=== PATIENT | female | born 1965 | race Caucasian/White ===

== ENCOUNTER 2019-11-08 10:38 | Outpatient (REF) | payer MEDICAID, SELFPAY ==
[2019-11-08 13:59] LABS: HCT 43.1 % (36.0-46.0); Mean Corp. HGB Concentration 32.5 g/dL (32.0-36.0); Mean Corpuscular Hemoglobin 29.3 pg (27.0-33.0); Mean Corpuscular Volume 90.2 fL (80-95); Mean Platelet Volume 10.7 fL (8.0-11.0); Platelet Count 503 x1000/uL (130-400); RBC 4.78 m/cumm (4.00-5.20); White Blood Cell Count 6.18 k/cumm (4.4-10.8)
[2019-11-08 14:21] LABS: ALT 21 U/L (14-59); AST 13 U/L (15-37); Alkaline Phosphatase 52 U/L (46-116); BUN 16 mg/dL (7-18); Bilirubin, Total 0.6 mg/dL (0.2-1.0); CREATININE 0.77 mg/dL (0.55-1.02); Calcium 9.7 mg/dL (8.5-10.1); Calculated LDL 112 mg/dL (<100); Chloride 103 mmol/L (98-107); Cholesterol 206 mg/dL (<200); Glucose 101 mg/dL (74-106); HDL Cholesterol 72 mg/dL (40-60); Magnesium 2.2 mg/dL (1.8-2.4); Potassium 4.4 mmol/L (3.5-5.1); Sodium 141 mmol/L (136-145); TSH (W/Ref FT4) 1.06 uIU/mL (0.36-3.74); Total Protein 7.6 g/dL (6.4-8.2); Triglyceride 110 mg/dL (<150)
== END 2019-11-08 10:58 ==
LOC: NCHCN 10:38
PROVIDERS: PCP Nurse Practitioner Family; Visit Provider Nurse Practitioner Family
DX: E83.42 Hypomagnesemia (principal); G47.9 Sleep disorder, unspecified
CPT/HCPCS: 80053; 80061; 85027; 83735; 84443

== ENCOUNTER 2019-12-02 17:25 | Emergency (ER) | payer OTHER, MEDICAID, SELFPAY ==
[2019-12-02 17:30] VITALS: BP 136/81; PULSE 77; RESP 14; TEMP 36.7; O2SAT 96
--- NOTE | 2019-12-02 17:55 | ED.GENADUL_ITS ---
Discharge Plan Disposition Patient Disposition: HOME Condition: Fair Discharge Details Chief Complaint: PsychEval Clinical Impression: Depression, Suicidal thoughts Primary Care Provider: Bryce Hankins ED Provider: Marcela Drake Home Meds and New Rx's Prescriptions: Continued trazodone 100 mg Tablet 100 mg PO QHS RF: 0 Discharge Instructions Instructions: Depression (ED), Suicide Prevention for Adults (ED) Additional Instructions: Encourage water intake. Encourage gentle exercise as discussed. Please keep your open communication with your going. Please contact your primary care tomorrow to discuss beginning to taper from your trazodone. Please keep your upcoming appointment with your psychologist. Please keep your upcoming appointment with your counselor. Mental health will be in contact with you tomorrow to check in. Please remember your safety contract. If you develop thoughts of self-harm, suicidal plan, or the new/worsening symptoms please seek care immediately once again. Referrals: Bryce Hankins, DEHYDRATOR TENDER [Primary Care Provider] - Discharge Data Discharge Date/Time-TO BE ENTERED AT DEPARTURE: 12/02/19 22:40 Medical Decision Making Patient is a pleasant 54-year-old female, accompanied by her , with chief complaint of worsening depression. Patient her reports that she has had depression for several months. However, recently, this is become much worse. Particular over the past month, symptoms have worsened. Patient did start trazodone 1 month ago she does not initially feel that this is linked to the time of the onset of medications with gradual progression. Patient reports that she is intermittently fiber harming self. She once tried to overdose on meloxicam but her maybe spit out the pills. She reports this is presently 1 to 2 weeks ago. She reports that she does not have an active plan at this time but does often think that my family would better off without me. In particular, her relationship with her has her very concerned. She reports that they have not been sexually intimate in quite some time, she feels that this is her fault that she is currently going through menopause. Patient is status post total hysterectomy but reports feeling hot flashes, mood swings, irritability, fatigue. Feels that she may be going through menopause currently. She also reports a strained relationship with her children. Is concerned that she has not been able to hold a job. She also reports physical manifestations including increased fatigue, slowing of her movements, dropping things frequently. States that she has been very forgetful. She and her report that this been manifesting in her burning food and having difficulty with daily tasks which is atypical for her. Patient reports that trazodone is making it more difficult for her to sleep as this increases her restless leg. Recently had a dose increase which further worsened her restless leg symptoms. Physical exam reveals a calm appearing woman, she has good eye contact. Neurologic exam was preformed as the patient was endorsing some weakness, exam is without signficant abnormality. She does tear up and seem sad when discussing her relationship with her family. She has some forward thinking but this is not positive. No suicidal plan, endorses passive intermittent suicidal thoughts, typically during fight with her . Plan to evalute with baseline labs. Will consult with mental health. Patient in paper clothes, will have CPSO. Labs reviewed, no sigfnicant abnormality is noted. Patient was evaluated by mental health. They feel that she is safe for discharge. She does have a very supportive relationship with her . She would prefer outpatient management. Initially, patient reported to me that she has not seen a counselor in years, she is reporting to them that she began counseling 1 month ago. Has an appointment with them again on Monday. Is also seeing a psychologist to discuss medication adjustment in 2 days. Mental health does not feelthat the patient is an risk to herself or others at this time. She has an excellent support system in her . They will contact patient tomorrow to check in, she has appropriate upcoming appointment. Advised she contact her primary care to discuss potentially weaning off of the trazadone as her symptoms have worsened since begining this medication and the increase in her RLS is making it difficult for her to sleep. She was given return precautions. Seems very happy about the discussion she had with mental health. All of her questions and concerns were addressed, she is in agreement with this plan. HPI General Mode of arrival: ambulatory . Date/Time Provider Initiated Documentation: 12/02/19 17:55 . Limitations to Documentation: no limitations . Information obtained by: patient, family () and RN notes reviewed . History of Present Illness 54 year old F presents to the emergency department with the chief complaint of worsening depression, suicidal thoughts, described as moderate and similar to prior episodes (intermittent for several years), Patient started experiencing this year(s) and it has been intermittent (worse over past month). No relieving factors improve symptom(s), Other factors that worsen symptoms (social stressers) . Patient notes no other symptoms.. Patient did receive the following treatments prior to arrival, none Related Data Home Medications Medication Instructions Recorded Confirmed trazodone 100 mg PO QHS 12/02/19 12/02/19 Allergies Allergy/AdvReac Type Severity Reaction Status Date / Time bee venom protein (honey bee) Allergy Severe anaphylaxis Unverified 12/02/19 17:35 General Stated Complaint: PsychEval NIKOLAS: 2 Review of Systems Constitutional Constitutional: Reports as per HPI, Denies chills, Denies fatigue, Denies fever(s), Denies headache(s) and Denies weakness Eyes Eyes: Denies change in vision ENT Ears, Nose, Mouth, and Throat: Denies headache(s) Cardiovascular Cardiovascular: Reports as per HPI, Denies chest pain, Denies lightheadedness, Denies dyspnea and Denies dyspnea on exertion Respiratory Respiratory: Reports as per HPI, Denies cough, Denies dyspnea and Denies dyspnea on exertion Gastrointestinal Gastrointestinal: Reports as per HPI, Denies abdominal pain, Denies change in bowel habits, Denies nausea and Denies vomiting Musculoskeletal Musculoskeletal: Denies abnormal gait Integumentary/Breasts Skin/Breast: Reports as per HPI and Denies rash Neurologic Neurologic: Denies abnormal movements, Denies abnormal speech, Denies abnormal gait, Denies headache(s), Denies paresthesias and Denies weakness Endocrine Endocrine: Denies fatigue PFSH Social History Smoking/Tobacco Use Status: Former Tobacco Use Alcohol Intake: current Substance use type: does not use Details: drinks only when buys alcohol drank over the weekend Do you feel safe at home: No (not safe from herself) Do you feel safe in your relationship?: Yes Additional Social history: supportive - stopped her last attempt Exam Const General: cooperative, healthy appearing, comfortable, no acute distress, well developed and well groomed Nutritional Appearance: average body habitus and well nourished Orientation: alert and awake Eyes General: appearance normal, both eyes and all related structures Visual Flynn: normal visual flynn by confrontation Alignment and Position: alignment normal Periorbital: periorbital findings normal Eyelids: eyelids normal Conjunctivae: conjunctivae normal Sclera: sclerae normal Cornea: corneas normal Pupils: PERRL and normal by confrontation EOM: EOM intact bilaterally Resp Effort & Inspection: normal respiratory effort, able to speak in complete sentences and no respiratory distress Auscultation: clear to auscultation bilaterally, no rales, no rhonchi and no wheezes Cardio Rate: regular rate Rhythm: regular rhythm Heart Sounds: S1 normal and S2 normal Skin General skin exam: no rashes or lesions noted Trauma: no lacerations or abrasions Neuro General: alert, awake and oriented x3 Cranial Nerves: CN's II-XI intact bilaterally Cognition: normal cognition Speech: speech normal Gait: normal gait Motor: muscle tone normal throughout, strength 5/5 throughout, no pronator drift, no movement abnormalities noted and no fasciculations Sensory Exam: no sensory deficits noted DTR's: Rt Triceps: 2+, Lt Triceps: 2+, Rt Biceps: 2+, Lt Biceps: 2+, Rt Brachioradialis: 2+, Lt Brachioradialis: 2+, Rt Patellar: 2+, Lt Patellar: 2+, Rt Ankle: 2+ and Lt Ankle: 2+ Coordination: [id number] test normal, [id number] test normal, Romberg test normal and tandem gait normal Course Vital Signs Vital signs: Vital Signs Temperature 36.7 C 12/02/19 17:30 Pulse 77 12/02/19 17:30 Respiratory Rate 14 12/02/19 17:30 Blood Pressure 136/81 12/02/19 17:30 Pulse Oximetry 96 12/02/19 17:30 Temperature 36.7 C 12/02/19 17:30 Temperature Source Skin 12/02/19 17:30 Pulse 77 12/02/19 17:30 Respiratory Rate 14 12/02/19 17:30 Respiratory Effort 12/02/19 17:36 Blood Pressure 136/81 12/02/19 17:30 Blood Pressure Position Sitting 12/02/19 17:30 Pulse Oximetry 96 12/02/19 17:30 Oxygen Delivery Method Room Air 12/02/19 17:30 Oxygen Flow Rate 0 12/02/19 17:30 Pain Level 5 12/02/19 17:30 Comment takes muscle relaxers 12/02/19 17:30
[2019-12-02 19:05] LABS: Absolute Basophil Count 0.03 k/cumm (0.0-0.2); Absolute Eosinophil Count 0.07 k/cumm (0.0-0.7); Absolute Monocyte Count 0.28 k/cumm (0.11-0.7); Absolute Neutrophil Count 2.65 k/cumm (1.2-6.7); Basophils % 0.5; Eosinophils % 1.2; HCT 39.8 % (36.0-46.0); HGB 13.5 g/dL (12.0-15.5); Lymphocytes % 49.8; Mean Corp. HGB Concentration 33.9 g/dL (32.0-36.0); Mean Corpuscular Hemoglobin 30.5 pg (27.0-33.0); Mean Platelet Volume 9.6 fL (8.0-11.0); Monocytes % 4.6; Neutrophils % 43.9; Platelet Count 428 x1000/uL (130-400); RBC 4.42 m/cumm (4.00-5.20); RBC Distribution Width 12.8 % (11.7-14.6); White Blood Cell Count 6.03 k/cumm (4.4-10.8)
[2019-12-02 19:13] LABS: Bilirubin Negative (Negative); Blood Negative (Negative); Clarity Clear (Clear); Glucose Negative (Negative); Ketones Negative (Negative); Leukocyte Esterase Trace (Negative); Nitrite Negative (Negative); Specific Gravity 1.015 (1.005-1.025); Urobilinogen 0.2 EU/dL (Up TO 0.2)
[2019-12-02 19:22] LABS: Bacteria Negative HPF (Negative); C & S Indicated? Yes; Casts Negative LPF (Negative); Crystals Negative HPF (Negative); Epithelial Cells Rare HPF (Negative); Mucus Negative (Negative); Other Cells Rare Renal (Negative); RBC Negative HPF (0-2); WBC 0-2 HPF (0-5)
[2019-12-02 19:27] LABS: ALT 19 U/L (14-59); AST 15 U/L (15-37); Albumin 3.8 g/dL (3.4-5.0); Alkaline Phosphatase 50 U/L (46-116); Anion Gap 8.6 mmol/L (3-11); BUN 15 mg/dL (7-18); Bilirubin, Total 0.3 mg/dL (0.2-1.0); CO2 30.4 mmol/L (21.0-32.0); CREATININE 0.81 mg/dL (0.55-1.02); Calcium 9.1 mg/dL (8.5-10.1); Chloride 104 mmol/L (98-107); Glucose 131 mg/dL (74-106); Potassium 3.5 mmol/L (3.5-5.1); Sodium 143 mmol/L (136-145); TSH 2.35 uIU/mL (0.36-3.74); Total Protein 7.5 g/dL (6.4-8.2)
[2019-12-02 19:27] LABS: *AMPHETAMINES SCREEN URINE Negative (Negative); *BARBITURATES SCREEN URINE Negative (Negative); *BENZODIAZEPINES SCREEN URINE Negative (Negative); Cannabinoids THC Negative (Negative); Cocaine Screen,Urine Negative (Negative); METHADONE URINE SCREEN Negative (Negative); OPIATES URINE SCREEN Negative (Negative); Tricyclic Antidepressants Negative (Negative)
[2019-12-02 19:37] LABS: Salicylate < 2.8 mg/dL (2.8-20.0)
[2019-12-02 19:39] LABS: ETHANOL BLOOD < 3.0 mg/dL (<3)
[2019-12-02 19:41] LABS: Acetaminophen < 2 ug/mL (10-30)
[2019-12-02 22:40] VITALS: BP 136/81; PULSE 77; RESP 14; TEMP 36.7; O2SAT 96
== END 2019-12-02 22:40 | disposition home or self-care (01) ==
PROVIDERS: Emergency Provider Physician Assistant; PCP Nurse Practitioner Family
DX: F32.89 Other specified depressive episodes (principal); R45.851 Suicidal ideations; Z91.5 Personal history of self-harm
CPT/HCPCS: 36415; 80053; 80307; 99285; 80320; 80329; 81003; 81015; 84443; 85025; 87086

== ENCOUNTER 2020-01-30 00:20 | Outpatient (CLI) | payer OTHER, MEDICAID, SELFPAY ==
--- NOTE | 2020-01-30 | DI.MRI_ITS ---
EXAM: MR BRAIN WO CLINICAL HISTORY: HEADACHES, R51,MEMORY IMPAIRMENT,R41.3,NEW AUDITORY HALLUCINATIONS,R44.3. TECHNIQUE: Routine multiplanar multisequence MRI of the brain was performed. CONTRAST MATERIAL: None COMPARISON: No exams were available for comparison FINDINGS: VENTRICLES AND EXTRA AXIAL SPACES: Normal in size and morphology for the patient's age. HEMORRHAGE: None. CEREBRAL PARENCHYMA: Mild atrophy disproportionate to the patient's age. No high signal lesions are seen in the white matter. No focus of restricted diffusion to suggest acute infarct. No space-occupy ing lesion identified. MIDLINE SHIFT: None. BRAINSTEM/CEREBELLUM: Normal. VISUALIZED PARANASAL SINUSES/MASTOIDS: Clear. The vascular flow voids appear intact. The orbits and pituitary are unremarkable. IMPRESSION: Mild atrophy, otherwise unremarkable MRI of the brain. DATA REPOSITORY:
== END 2020-01-30 00:40 ==
PROVIDERS: PCP Nurse Practitioner Family; Visit Provider Family Medicine
DX: R51 Headache (principal); R41.3 Other amnesia; R44.0 Auditory hallucinations; G31.89 Other specified degenerative diseases of nervous system
CPT/HCPCS: 70551

== ENCOUNTER 2020-02-28 07:57 | Outpatient (REF) | payer OTHER, MEDICAID, SELFPAY ==
[2020-02-28 19:14] LABS: Vitamin B12 1059 pg/mL (193-986)
[2020-03-02 07:30] LABS: Vitamin D 25 Total 32.5 ng/ml (30-100)
[2020-03-02 11:58] LABS: Syphilis Serology (RPR) Negative (Negative)
== END 2020-02-28 08:17 ==
LOC: NCHCN 07:57
PROVIDERS: PCP Nurse Practitioner Family; Visit Provider Family Medicine
DX: R51 Headache (principal); R41.3 Other amnesia; R44.3 Hallucinations, unspecified; Z51.81 Encounter for therapeutic drug level monitoring
CPT/HCPCS: 82306; 82607; 86592

== ENCOUNTER 2021-12-01 17:14 | Outpatient (REF) | payer OTHER, MEDICAID, SELFPAY ==
[2021-12-01 16:59] LABS: ALT 28 U/L (14-59); AST 18 U/L (15-37); Albumin 4.2 g/dL (3.4-5.0); Alkaline Phosphatase 59 U/L (46-116); Anion Gap 9.4 mmol/L (3-11); BUN 15 mg/dL (7-18); Bilirubin, Total 0.3 mg/dL (0.2-1.0); CO2 27.6 mmol/L (21.0-32.0); CREATININE 0.8 mg/dL (0.55-1.02); Calcium 9.6 mg/dL (8.5-10.1); Calculated LDL 228 mg/dL (<100); Chloride 102 mmol/L (98-107); Cholesterol 304 mg/dL (<200); Glucose 90 mg/dL (74-106); HDL Cholesterol 61 mg/dL (40-60); Magnesium 2.3 mg/dL (1.8-2.4); Potassium 4.9 mmol/L (3.5-5.1); Sodium 139 mmol/L (136-145); Total Protein 7.8 g/dL (6.4-8.2); Triglyceride 76 mg/dL (<150)
== END 2021-12-01 17:15 | disposition home or self-care (01) ==
LOC: NCHCN 17:14
PROVIDERS: PCP Nurse Practitioner Family; Visit Provider Nurse Practitioner Family
DX: Z00.00 Encounter for general adult medical examination without abnormal findings (principal)
CPT/HCPCS: 80053; 80061; 83735

== ENCOUNTER 2021-12-02 16:19 | Outpatient (REF) | payer OTHER, MEDICAID, SELFPAY ==
[2021-12-02 14:07] LABS: HCT 42.6 % (36.0-46.0); HGB 14.1 g/dL (11.2-15.7); MCH 29.6 pg (27.0-33.0); MCHC 33.1 % (32.0-36.0); MCV 89.5 fL (80-95); MPV 10.9 fL (8.0-11.0); Platelet Count 419 10^3/uL (130-400); RBC 4.76 10^6/uL (3.93-5.22); RDW 12.5 % (11.7-14.6); RDW-SD 41.2 fL; WBC 6.01 10^3/uL (4.4-10.8)
[2021-12-02 14:17] LABS: Iron 92 ug/dL (50-170); Total Iron Binding Capacity 300 ug/dL (250-450); Transferrin Sat 31 % (15-50)
[2021-12-02 22:50] LABS: Ferritin 130 ng/mL (10-291)
== END 2021-12-02 16:20 | disposition home or self-care (01) ==
LOC: NCHCN 16:19
PROVIDERS: PCP Nurse Practitioner Family; Visit Provider Nurse Practitioner Family
DX: G47.9 Sleep disorder, unspecified (principal)
CPT/HCPCS: 85027; 82728; 83540; 83550

== ENCOUNTER 2022-09-02 10:13 | Emergency (ER) | payer OTHER, MEDICAID, SELFPAY ==
[2022-09-02 10:20] VITALS: BP 154/82; PULSE 127; RESP 16; TEMP 38; O2SAT 95
--- NOTE | 2022-09-02 10:45 | RT.EKG_ITS ---
APPROVED REPORT Exam: Resting ECG Reason for Exam: OD Patient Location: E HR:96 bpm ECG Measurements Heart Rate [address] 172 P 56 QRSd 94 QRS -59 QT 358 T 42 QTc 453 Conclusion Sinus rhythm...normal P axis, V-rate 60- 99 Probable left atrial enlargement...P >50mS, <-0.10mV V1 Left anterior fascicular block...axis(240,-40), init forces inf
--- NOTE | 2022-09-02 10:54 | ED.GENADUL_ITS ---
Discharge Plan Disposition Patient Disposition: Home Condition: Improving Discharge Details Clinical Impression: Depression, Overdose Primary Care Provider: Vikki Bowman ED Provider: Rangel Bang Home Meds and New Rx's Prescriptions: Continued sertraline 100 mg tablet 2 tab PO DAILY Label Comments: TAKE 2 TABLETS BY MOUTH ONCE DAILY IN THE MORNING Discharge Instructions Instructions: Depression (ED) Additional Instructions: Please follow the instructions given to you by the [facility] human services team, phone #[phone]. They will be checking in with you over the weekend and to get you referred to additional outpatient resources as well as we will look into a care bed if you would like to pursue this. Please watch for ne w or worsening symptoms and return to the ER for any concerns. Otherwise please contact your primary care provider on Monday to discuss your ER visit and need for outpatient reevaluation. Discharge Data Discharge Date/Time-TO BE ENTERED AT DEPARTURE: 09/02/22 15:33 Medical Decision Making 57-year-old female who reports that she took 5 or 6 100 mg sertraline yesterday around 3 PM presented to the ER for ongoing depression and vague thoughts of SI, no current plan. Given she presents with tachycardia, very well may be secondary to crying, anxiety, etc. but in the setting of a temperature of 38.0, will obtain laboratory values for medical screening evaluation. Of note, repeat temperature was normal, no fever. We will initiate a CPSO, interim care plan, and once medically cleared will initiate a mental health evaluation. Poison control contacted, recommends monitoring heart rate and repeat salicylate level. Otherwise symptomatic care Repeat heart rate of 112. Patient continues to be tearful, requesting anxiolytic. 2 mg p.o. Ativan provided. Laboratory values reveal minimal nonspecific leukocytosis of 10.93. Examination does not reveal any obvious signs of infection. Laboratory values otherwise grossly unremarkable for obvious emergent process. Initial salicylate level of 9.1, subsequent level obtained at the request of poison control, trending downward at 5.6. Patient medically cleared. We will now request a mental health evaluation. Mental health evaluation completed, able to safety plan the patient home, will check in with her over the weekend. They are sending referral to case management and outpatient therapy. Also will consider a care bed. Patient is agreeable to this plan and reports that she feels safe going home with her . Heart rate now 102. Strict discharge and return precautions were provided. Patient understands, is agreeable to this plan, and has no additional questions or concerns upon discharge. This documentation was generated using [employer] system, please disregard any oddities of phrase or misspellings. Medical Records Medical records reviewed: Yes I reviewed the patient's medical records. Lab Data Lab results reviewed: Yes I reviewed the patient's lab results. Labs: Laboratory Tests Range/Units 09/02/22 09/02/22 09/02/22 10:26 10:26 11:44 WBC (4.4-10.8) 10^3/uL RBC (3.93-5.22) 10^6/uL Hgb (11.2-15.7) g/dL Hct (36.0-46.0) % MCV (80-95) fL MCH (27.0-33.0) pg MCHC (32.0-36.0) % RDW (11.7-14.6) % Plt Count (130-400) 10^3/uL MPV (8.0-11.0) fL Immature Gran % Neutrophils % Lymphocytes % Monocytes % Eosinophils % Basophils % Nucleated RBC % (0.0-0.3) % Absolute Neutrophils (1.2-6.7) 10^3/uL Absolute Lymphocytes (1.2-3.4) 10^3/uL Absolute Monocytes (0.1-0.8) 10^3/uL Absolute Eosinophils (0.0-0.7) 10^3/uL Absolute Basophils (0.0-0.2) 10^3/uL Sodium (136-145) mmol/L 134 L Potassium (3.5-5.1) mmol/L 3.8 Chloride (98-107) mmol/L 98 Carbon Dioxide (21.0-32.0) mmol/L 28.1 Anion Gap (3-11) mmol/L 7.9 BUN (7-18) mg/dL 10 Creatinine (0.55-1.02) mg/dL 0.7 Est GFR (CKD-EPI 2020) (mL/min/1.73m2) 100.81 Glucose (74-106) mg/dL 135 H Calcium (8.5-10.1) mg/dL 9.9 Total Bilirubin (0.2-1.0) mg/dL 0.4 AST (15-37) U/L 17 ALT (14-59) U/L 19 Alkaline Phosphatase (46-116) U/L 60 Total Protein (6.4-8.2) g/dL 8.5 H Albumin (3.4-5.0) g/dL 4.1 TSH (0.36-3.74) uIU/mL 1.35 Urine Color (Yellow) Straw Urine Clarity (Clear) Clear Urine pH (5-8) 6.5 Ur Specific Circle (1.005-1.025) 1.010 Urine Protein (Negative) mg/dL Negative Urine Ketones (Negative) mg/dL Negative Urine Blood (Negative) Trace-intact H Urine Nitrite (Negative) Negative Urine Bilirubin (Negative) Negative Urine Urobilinogen (Up TO 0.2) EU/dL 0.2 Ur Leukocyte Esterase (Negative) Negative Urine RBC (0-2) HPF 0-2 Urine WBC (0-5) HPF Negative Ur Epithelial Cells (Negative) HPF Rare Urine Crystals (Negative) HPF Negative Urine Bacteria (Negative) HPF Negative Urine Casts (Negative) LPF Negative Urine Mucus (Negative) Negative Ur Culture Indicated? No Urine Glucose (Negative) mg/dL Negative Salicylates (<2.8) mg/dL Urine Opiates Screen (Negative) Negative Urine Methadone Screen (Negative) Negative Acetaminophen (10-30) ug/mL Ur Barbiturates Screen (Negative) Negative Ur Tricyclics Screen (Negative) Negative Ur Amphetamines Screen (Negative) Negative U Benzodiazepines Scrn (Negative) Negative Urine Cocaine Screen (Negative) Negative Ur THC Screen (Negative) Negative Ethyl Alcohol (<10) mg/dL < 3.0 Range/Units 09/02/22 09/02/22 09/02/22 11:44 11:44 14:37 WBC (4.4-10.8) 10^3/uL 10.93 H RBC (3.93-5.22) 10^6/uL 4.71 Hgb (11.2-15.7) g/dL 13.9 Hct (36.0-46.0) % 40.9 MCV (80-95) fL 87 MCH (27.0-33.0) pg 29.5 MCHC (32.0-36.0) % 34.0 RDW (11.7-14.6) % 13.3 Plt Count (130-400) 10^3/uL 456 H MPV (8.0-11.0) fL 9.8 Immature Gran % 0.4 Neutrophils % 79.5 Lymphocytes % 15.5 Monocytes % 4.2 Eosinophils % 0.0 Basophils % 0.4 Nucleated RBC % (0.0-0.3) % 0.0 Absolute Neutrophils (1.2-6.7) 10^3/uL 8.69 H Absolute Lymphocytes (1.2-3.4) 10^3/uL 1.69 Absolute Monocytes (0.1-0.8) 10^3/uL 0.46 Absolute Eosinophils (0.0-0.7) 10^3/uL 0.00 Absolute Basophils (0.0-0.2) 10^3/uL 0.04 Sodium (136-145) mmol/L Potassium (3.5-5.1) mmol/L Chloride (98-107) mmol/L Carbon Dioxide (21.0-32.0) mmol/L Anion Gap (3-11) mmol/L BUN (7-18) mg/dL Creatinine (0.55-1.02) mg/dL Est GFR (CKD-EPI 2020) (mL/min/1.73m2) Glucose (74-106) mg/dL Calcium (8.5-10.1) mg/dL Total Bilirubin (0.2-1.0) mg/dL AST (15-37) U/L ALT (14-59) U/L Alkaline Phosphatase (46-116) U/L Total Protein (6.4-8.2) g/dL Albumin (3.4-5.0) g/dL TSH (0.36-3.74) uIU/mL Urine Color (Yellow) Urine Clarity (Clear) Urine pH (5-8) Ur Specific Circle (1.005-1.025) Urine Protein (Negative) mg/dL Urine Ketones (Negative) mg/dL Urine Blood (Negative) Urine Nitrite (Negative) Urine Bilirubin (Negative) Urine Urobilinogen (Up TO 0.2) EU/dL Ur Leukocyte Esterase (Negative) Urine RBC (0-2) HPF Urine WBC (0-5) HPF Ur Epithelial Cells (Negative) HPF Urine Crystals (Negative) HPF Urine Bacteria (Negative) HPF Urine Casts (Negative) LPF Urine Mucus (Negative) Ur Culture Indicated? Urine Glucose (Negative) mg/dL Salicylates (<2.8) mg/dL 9.1 5.6 Urine Opiates Screen (Negative) Urine Methadone Screen (Negative) Acetaminophen (10-30) ug/mL < 2 Ur Barbiturates Screen (Negative) Ur Tricyclics Screen (Negative) Ur Amphetamines Screen (Negative) U Benzodiazepines Scrn (Negative) Urine Cocaine Screen (Negative) Ur THC Screen (Negative) Ethyl Alcohol (<10) mg/dL ECG Data Attestation: I personally reviewed and interpreted this ECG (s) as follows: Interpretation: Sinus rhythm, ventricular rate of 96. No STEMI. Sign Out No HPI General Mode of arrival: ambulatory . Date/Time Provider Initiated Documentation: 09/02/22 10:27 . Limitations to Documentation: no limitations . Information obtained by: patient . HPI Narrative: This is a 57-year-old female who presents to the ER for evaluation regarding depression, suicidal thoughts, intentional overdose yesterday. Patient states that she took 5 or 6 of her 100 mg sertraline yesterday afternoon. Patient states that she is unhappy with her life currently, is currently caring for her grandson, and her mother at this summer and she wishes she could have done more. Patient states that she wants to continue caring for her mother but the only way to do that is to kill herself. She denies previous suicide attempt. She denies any acute medical concerns or complaints. Denies recent illness or trauma. Patient states that she took the pills quickly without thinking, in hindsight she admits that she does not know this was enough of a dose to actually cause harm to herself. Related Data Home Medications Medication Instructions Recorded Confirmed sertraline 100 mg tablet 2 tab PO DAILY 09/02/22 09/02/22 Allergies Allergy/AdvReac Type Severity Reaction Status Date / Time bee venom protein (honey bee) Allergy Severe anaphylaxis Unverified 09/02/22 10:24 General Stated Complaint: PsychEval NIKOLAS: 2 Review of Systems Constitutional Constitutional: Denies fever(s) ENT Ears, Nose, Mouth, and Throat: Denies neck pain Cardiovascular Cardiovascular: Denies chest pain and Denies dyspnea Respiratory Respiratory: Denies cough and Denies dyspnea Gastrointestinal Gastrointestinal: Denies abdominal pain, Denies nausea and Denies vomiting Musculoskeletal Musculoskeletal: Denies neck pain Integumentary/Breasts Skin/Breast: Denies rash Psychiatric Psychiatric: Reports anxiety, Reports depression, Denies homicidal ideation and Reports suicidal ideation (Vague, no active plan) PFSH All Active Problems (Updated 09/03/22 @ 11:10 by VAISHALI Almaraz) Depression (Chronic) Suicidal thoughts (Acute) Overdose (Acute) Social History Smoking/Tobacco Use Status: Former Tobacco Use Smoking risk assessment performed?: Yes Alcohol Intake: current Alcohol Intake frequency: holidays/special occasions only Substance use type: does not use Details: drinks only when buys alcohol drank over the weekend Do you feel safe at home: No (not safe from herself) Do you feel safe in your relationship?: Yes Additional Social history: supportive - stopped her last attempt Exam Const General: cooperative, healthy appearing, no acute distress and anxious (Tearful) Orientation: alert, awake and oriented x3 HENMT Head: normal to inspection, normocephalic and atraumatic Face and sinus: normal facial exam Mouth: moist mucous membranes Eyes Conjunctivae: conjunctivae normal Neck Neck: normal visual inspection, trachea midline and supple Resp Effort & Inspection: normal respiratory effort and able to speak in complete sentences Auscultation: clear to auscultation bilaterally Cardio Rate: tachycardic (118) Rhythm: regular rhythm GI Palpation: soft and nontender Back/Spine/Pelvis Back: No back tenderness Skin General skin exam: no rashes or lesions noted Neuro General: patient alert, patient awake, patient oriented x3, moves all extremities and no focal motor deficits Cognition: normal cognition Speech: speech normal Gait: normal gait Motor: muscle tone normal throughout Sensory Exam: no sensory deficits noted Extrem General: normal to inspection, full ROM and capillary refill normal Psych Appearance: grossly normal Mental Status: mental status grossly normal Speech and Movement: speech and movement normal Mood: anxious mood and dysthymic mood Affect: sad Attitude: cooperative Thought Process: normal Thought Content: suicidality (Vague, no active plan) Insight: fair Judgment: fair Course Vital Signs Vital signs: Vital Signs Temperature 38.0 C H 09/02/22 10:20 Pulse 127 H 09/02/22 10:20 Respiratory Rate 16 09/02/22 10:20 Blood Pressure 154/82 H 09/02/22 10:20 Pulse Oximetry 95 09/02/22 10:20 Temperature 38.0 C H 09/02/22 10:20 Temperature Source Temporal Artery Scan 09/02/22 10:20 Pulse 127 H 09/02/22 10:20 Respiratory Rate 16 09/02/22 10:20 Respiratory Effort Short of Breath 09/02/22 10:23 Blood Pressure 154/82 H 09/02/22 10:20 Blood Pressure Position Sitting 09/02/22 10:20 Pulse Oximetry 95 09/02/22 10:20 Oxygen Delivery Method Room Air 09/02/22 10:20 Oxygen Flow Rate 0 09/02/22 10:20 Pain Level 0 09/02/22 10:20 PAWSS Have you Been Recently Intoxicated or Drunk Within the Last 30 days?: No Have you Ever Experienced Previous Episodes of Alcohol Withdrawal?: No Have you ever Experienced Withdrawal Seizures?: No Have you ever Experienced Delirium Tremens(DT)s?: No Have you ever undergone Alcohol Rehabilitation Treatment (i.e, inpt ot outpatient treatment programs)?: No Have you ever Experienced Blackouts?: No Have you ever Combined Alcohol with other Downers within the last 90 days?: No Have you ever Combined Alcohol with any other Substance of Abuse during the last 90 days?: No Result: 0
[2022-09-02 11:14] VITALS: BP 133/88; PULSE 120; RESP 20; TEMP 37.4; O2SAT 94
[2022-09-02 11:46] LABS: Abs Immature Grans 0.04 10^3/uL (0.0-0.06); Absolute Basophil Count 0.04 10^3/uL (0.0-0.2); Absolute Lymphocyte Count 1.69 10^3/uL (1.2-3.4); Absolute Monocyte Count 0.46 10^3/uL (0.1-0.8); Basophils % 0.4; HCT 40.9 % (36.0-46.0); HGB 13.9 g/dL (11.2-15.7); Immature Grans % 0.4; Lymphocytes % 15.5; MCH 29.5 pg (27.0-33.0); MCV 87 fL (80-95); MPV 9.8 fL (8.0-11.0); Monocytes % 4.2; Neutrophils % 79.5; Platelet Count 456 10^3/uL (130-400); RBC 4.71 10^6/uL (3.93-5.22); RDW 13.3 % (11.7-14.6); RDW-SD 42.4 fL; WBC 10.93 10^3/uL (4.4-10.8)
[2022-09-02 11:48] LABS: Absolute Neutrophil Count 8.69 10^3/uL (1.2-6.7)
--- NOTE | 2022-09-02 12:05 | NUR.NOTE ---
Ed Ed had to leave to take grandson back to [place]. Provided phone number if there was any questions or concerns. Ed took patients purse with him. Nursing Note:
[2022-09-02 12:12] LABS: Salicylate 9.1 mg/dL (<2.8)
[2022-09-02 12:13] LABS: Acetaminophen < 2 ug/mL (10-30)
[2022-09-02 12:14] LABS: ALT 19 U/L (14-59); AST 17 U/L (15-37); Albumin 4.1 g/dL (3.4-5.0); Alkaline Phosphatase 60 U/L (46-116); Anion Gap 7.9 mmol/L (3-11); BUN 10 mg/dL (7-18); Bilirubin, Total 0.4 mg/dL (0.2-1.0); CO2 28.1 mmol/L (21.0-32.0); CREATININE 0.7 mg/dL (0.55-1.02); Calcium 9.9 mg/dL (8.5-10.1); Chloride 98 mmol/L (98-107); ETHANOL BLOOD < 3.0 mg/dL (<10); Estimated GFR 100.81 (mL/min/1.73m2); Glucose 135 mg/dL (74-106); Potassium 3.8 mmol/L (3.5-5.1); Sodium 134 mmol/L (136-145); TSH (W/Ref FT4) 1.35 uIU/mL (0.36-3.74); Total Protein 8.5 g/dL (6.4-8.2)
[2022-09-02 13:02] LABS: Bilirubin Negative (Negative); Blood Trace-intact (Negative); Clarity Clear (Clear); Glucose Negative (Negative); Ketones Negative (Negative); Leukocyte Esterase Negative (Negative); Nitrite Negative (Negative); Urobilinogen 0.2 EU/dL (Up TO 0.2); pH 6.5 (5-8)
--- NOTE | 2022-09-02 13:06 | NUR.NOTE ---
Patient requesting to leave. Nursing Note:
[2022-09-02 13:12] LABS: Bacteria Negative HPF (Negative); C & S Indicated? No; Casts Negative LPF (Negative); Crystals Negative HPF (Negative); Epithelial Cells Rare HPF (Negative); Mucus Negative (Negative); RBC 0-2 HPF (0-2); WBC Negative HPF (0-5)
[2022-09-02 13:14] LABS: *AMPHETAMINES SCREEN URINE Negative (Negative); *BARBITURATES SCREEN URINE Negative (Negative); *BENZODIAZEPINES SCREEN URINE Negative (Negative); Cannabinoids THC Negative (Negative); Cocaine Screen,Urine Negative (Negative); METHADONE URINE SCREEN Negative (Negative); OPIATES URINE SCREEN Negative (Negative)
[2022-09-02 13:15] LABS: Tricyclic Antidepressants Negative (Negative)
[2022-09-02] MEDS: Normal Saline 1,000 ML 1000 ML IV (13:29)
[2022-09-02] MEDS: LORazepam 1 MG TAB 2 MG PO (13:33)
[2022-09-02 15:15] LABS: Salicylate 5.6 mg/dL (<2.8)
--- NOTE | 2022-09-03 13:21 | PDOC.MHCN_ITS ---
Date of service: 09/02/22 Time of Service: 13:21 PHQ-9 Over the last 2 weeks, how often have you been bothered by any of the following problems? 1. Little interest or pleasure in doing things: nearly every day 2. Feeling down, depressed, or hopeless: nearly every day 3. Trouble falling or staying asleep, or sleeping too much: not at all 4. Feeling tired or having little energy: nearly every day 5. Poor appetite or overeating: not at all 6. Feeling bad about yourself - or that you are a failure or have let yourself and your family down: nearly every day 7. Trouble concentrating on things, such as reading the newspaper or watching television: nearly every day 8. Moving or speaking so slowly that other people could have noticed? - Or the opposite - being so fidgety or restless that you have been moving around a lot more than usual: not at all 9. Thoughts that you would be better off or of hurting yourself in some way: several days Total score: 16 If you checked off any problems, how difficult have these problems made it for you to do your work, take care of things at home, or get along with other people?: very difficult Source: Developed by Drs. Shaun Christianson, Lizabeth Sanchez, Scout Allen and colleagues, with an educational adarsh from [employer]. Suicide Severity Rate CSSRS Have you wished you were or wished you could go to sleep and not wake up?: Yes Have you actually had any thoughts of killing yourself?: Yes CSSRS2 Have you been thinking about how you might do this?: Yes Have you had these thoughts and had some intention of acting on them?: Yes Have you started to work out or worked out the details of how to kill yourself? Do you intend to carry out this plan?: Yes CSSRS3 Have you ever done anything, started to do anything or prepared to do anything to end your life?: Yes CSSRS4 Was this within the past three months?: Yes Screening Score Total Score: 8 Screening: Positive Mental Health Emergency Note Release [facility] release signed:: Yes Reason for Visit Client arrived to [facility] ED on 09.02.2022 after an intentional overdose on 09.01.2022 of Sertraline that is no longer prescribed to her, with intent to by suicide. Client has no history of hospitalizations. She reported that she struggles with social anxiety so won't go into any place that has more than one person unless she has to i.e. the grocery store. In the last 2 weeks has the pt presented for ES prior to today?: Unknown Client Information Client is: New Well Housed: Yes Non Suicidal Self Injury Current: No History: No Safety Risk/Harm to Self or Others Current Ideation to Harm Self or Others: No Risk: Does risk to harm exist?: yes. Access to means: Yes. Types of Means: Other weapons and Medication. Counseling provided: Yes Risk: Moderate Risk Duty to warn indicated: No Asssessment/Mental Status Appearance: Disheveled Attitude: Cooperative and Friendly Behavior: Unremarkable Speech: Normal Affect: Cogruent with mood Mood: Stressed, Depressed and Anxious Thought process: Unremarkable Hallucinations: No Delusions: No Attention: Unremarkable Perception: Not impaired Orientation: Fully orientated Memory: Intact Insight: Good Judgement: Fair Neurovegetative Symptoms Sleep: Increase Appetitie: No change Interests: Decrease Energy: Decrease Libido: Not applicable Substance Use: Do you use nicotine?: No Have you used substances in the last 7 days?: No Additional Issues: Assaultive/Threatening Behavior: No Medical Concerns: No Client engaged in active self harm w/weapon: No Threatening to run away: No Child reported abuse/neglect: No Voluntarily presenting for services: Yes Domestic violence is a concern: No Extreme Psychosis or extreme behavior is present: No Impression Client is a 57 year old, , female who lives with her who she has been with since the age of [age] years old. She endorsed family conflict none of my 4 kids call unless they need money or a cigar machine feeder. Client was watching her daughters 8 year old son after the daughters boyfriend left [facility] alone and the daughter could not get to him. Client reported that the 8 year old is incontinent of bowels and bladder and walks around with an iPad all day. She asked him if he needed help getting cleaned up and the child refused to do so. Eventually, the client told her he needed to go home and the responded he could do it in the am. The client responded by taking a handful of her old prescription. Additionally, the clients mother in March and was sick since October with cancer. The client's sister per her report was caring for their mother however, would not give the mother her pain medications. The client tried to go get her mother to bring her hoe with her however, per the client's report the sister would make the mother feel bad and so stayed with the sister. The client feels responsible that her mother was in so much pain. She shared that her askes her if she still loves him. She reported she feels like she is in this dark hole and cannot get out. Her symptoms are congruent with a major depressive disorder and although she is not treated right now as she stopped her mediations. It is the recommendation of this clinician that she reconsider starting back up on something or at least therapy. The CARE Bed was offered and discussed however, due to her anxiety she is not willing to accept at this tie but will continue to think about it.? Resources Reosurces reviewed and given:: [facility] and [facility] Plan/Disposition Recommended Disposition: PCP/Office visit, Crisis bed, (client declined ) No and Therapy. Plan: This clinician will put in a referral for therapy Client will do daily check in calls at 6pm through the weekend. Person reported agreement to plan: Yes Reports/communication Outcome discussed with: ED/Personnel
== END 2022-09-02 15:33 | disposition home or self-care (01) ==
PROVIDERS: Emergency Provider Physician Assistant; PCP Nurse Practitioner Family
DX: T43.222A Poisoning by selective serotonin reuptake inhibitors, intentional self-harm, initial encounter (principal); F32.A Depression, unspecified; R00.0 Tachycardia, unspecified; D72.829 Elevated white blood cell count, unspecified; Z87.891 Personal history of nicotine dependence
CPT/HCPCS: 80053; 80307; 81025; 93005; 96360; 96361; 99285; 80320; 80329; 81003; 81015; 84443; 85025; 93010; 99284

== ENCOUNTER 2023-07-27 13:20 | Outpatient (REF) | payer OTHER, MEDICAID, SELFPAY ==
[2023-07-27 19:40] LABS: Abs Immature Grans 0.01 10^3/uL (0.0-0.06); Absolute Basophil Count 0.07 10^3/uL (0.0-0.2); Absolute Eosinophil Count 0.12 10^3/uL (0.0-0.7); Absolute Lymphocyte Count 3.18 10^3/uL (1.2-3.4); Absolute Neutrophil Count 3.26 10^3/uL (1.2-6.7); Eosinophils % 1.7; HCT 43.3 % (36.0-46.0); HGB 14.5 g/dL (11.2-15.7); Immature Grans % 0.1; Lymphocytes % 45.8; MCHC 33.5 % (32.0-36.0); MCV 90 fL (80-95); MPV 10.2 fL (8.0-11.0); Monocytes % 4.3; Neutrophils % 47.1; Platelet Count 464 10^3/uL (130-400); RBC 4.83 10^6/uL (3.93-5.22); RDW 12.9 % (11.7-14.6); RDW-SD 42.5 fL; WBC 6.94 10^3/uL (4.4-10.8)
[2023-07-27 20:01] LABS: ALT 23 U/L (14-59); AST 18 U/L (15-37); Alkaline Phosphatase 56 U/L (46-116); Anion Gap 10.5 mmol/L (3-11); BUN 11 mg/dL (7-18); Bilirubin, Total 0.2 mg/dL (0.2-1.0); CO2 29.5 mmol/L (21.0-32.0); CREATININE 0.7 mg/dL (0.55-1.02); Calcium 9.5 mg/dL (8.5-10.1); Calculated LDL 143 mg/dL (<100); Chloride 104 mmol/L (98-107); Cholesterol 246 mg/dL (<200); Estimated GFR 100.19 (mL/min/1.73m2); Glucose 101 mg/dL (74-106); HDL Cholesterol 85 mg/dL (40-60); Magnesium 2.7 mg/dL (1.8-2.4); Potassium 4.1 mmol/L (3.5-5.1); Sodium 144 mmol/L (136-145); Total Protein 7.9 g/dL (6.4-8.2); Triglyceride 91 mg/dL (<150)
[2023-07-29 14:19] LABS: Chlamydia Result Negative (Negative); GC Result Negative (Negative)
== END 2023-07-27 13:21 | disposition home or self-care (01) ==
LOC: NCHCN 13:20
PROVIDERS: PCP Nurse Practitioner Family; Visit Provider Nurse Practitioner Family
DX: R87.89 Other abnormal findings in specimens from female genital organs (principal); E83.42 Hypomagnesemia; G25.81 Restless legs syndrome
CPT/HCPCS: 80053; 80061; 87491; 87591; 83735; 85025

== ENCOUNTER → 2023-08-17 01:11 | Outpatient (CLI) | payer OTHER, MEDICAID, SELFPAY ==
--- NOTE | 2023-08-17 | DI.MAMMO_ITS ---
Exam(s) MAMMO SCREENING EXAM: MAMMO SCREENING CLINICAL HISTORY: SCREENING FOR BREAST CANCER Z12.39. TECHNIQUE: Bilateral full field digital CC and MLO mammographic images were obtained with 3D tomosyn thesis and utilizing computer aided detection (CAD). COMPARISON: None available at this time FINDINGS: There has been no significant change in the appearance and distribution of the fibroglandular tissue. There are no spiculated masses nor malignant appearing microcalcification groups. There is no significant architectural distortion nor skin thickening-retraction. IMPRESSION: No radiographic evidence of malignancy. BI-RADS Category 1 - Negative Breast Density - Category B - Scattered areas of fibroglandular density Breast density Category C or D implies that the patient has dense breast tissue. Dense breast tissue can make it harder to find cancer on a mammogram. Dense breast tissue is also associated with an incr eased risk of breast cancer. This information about the result of the mammogram report was provided to the patient to raise their awareness. Use this report when you speak with the patient about their risks for breast cancer, which includes their family history. At that time, you may recommend additional screening tests (Ultrasoun d or MRI) as these tests may add significant information. A negative radiographic report should not delay biopsy if a dominant or clinically suspicious mass is present. Up to ten percent of cancers are not identified on mammography. A negative report may reinforce clinical impression. Adenosis and dense breasts may obscure an underlying neoplasm. False positive reports average 6 to 10%. Patient will receive a letter notifying them of these results.
== END ==
PROVIDERS: PCP Nurse Practitioner Family; Visit Provider Nurse Practitioner Family
DX: Z12.31 Encounter for screening mammogram for malignant neoplasm of breast (principal); R92.323 Mammographic fibroglandular density, bilateral breasts
CPT/HCPCS: 77063; 77067

== ENCOUNTER 2023-09-25 06:11 | Day surgery (SDC) | payer OTHER, MEDICAID, SELFPAY ==
--- NOTE | 2023-09-24 15:23 | W.ANESPRE ---
General Info Date of Service Date Performed: 09/25/23 Height: 5 ft 1 in Weight: 54.431 kg Body Mass Index (BMI): 22.6 Surgical Procedure: Operation Date: 09/25/23 07:35 Proposed Procedure Side Surgeon thomas Edmondson MD Meds Allergies and Home Medications Allergies Allergy/AdvReac Type Severity Reaction Status Date / Time bee venom protein (honey bee) Allergy Severe anaphylaxis Unverified 09/25/23 06:30 Home Medication Medication Instructions Recorded cholecalciferol (vitamin D3) 10 10 mcg PO DAILY 08/18/23 mcg (400 unit) capsule diphenhydramine HCl 25 mg capsule 25 mg PO QHS PRN 08/18/23 (Aler-Cap) magnesium 200 mg tablet 400 mg PO DAILY 08/18/23 meclizine 25 mg tablet 25 mg PO DAILY PRN 08/18/23 melatonin 10 mg capsule 10 mg PO HS PRN 08/18/23 omega-3 250 lv-ger-uqv-lutein 2.5 2 cap PO DAILY 08/18/23 mg-zeaxanthin 0.5 mg capsule ([facility]) omega-3 fatty acids-fish oil 360 1 cap PO DAILY 08/18/23 mg-1,200 mg capsule (Fish Oil) vitamin E mixed 100 unit tablet 45 mg PO DAILY 08/18/23 cyclosporine 0.05 % eye drops in a drp 09/25/23 dropperette Current Visit Medications: Current Medications Generic Name Dose Route Start Last Admin Trade Name Freq PRN Reason Stop Dose Admin Ringer's Solution 1,000 mls @ 80 mls/hr 09/25/23 06:00 IV 10/22/23 23:59 INFUSION KIM IV Miscellaneous Supplies 1 each 09/25/23 06:00 Iv Access IV 10/22/23 23:59 DIRECTED KIM Sodium Chloride 0 ml 09/25/23 06:00 Normal Saline Flush 10 Ml Syr IV 10/22/23 23:59 PRN PRN Sodium Chloride 0 ml 09/25/23 06:00 Normal Saline 10 Ml Vial IJ 10/22/23 23:59 DIRECTED PRN Sterile Water 0 ml 09/25/23 06:00 Water,Injection,Sterile 10 Ml Vial IJ 10/22/23 23:59 DIRECTED PRN PFSH Active Problems Active Problems: Problem Status Onset Code Suicidal thoughts R45.851 Depression F32.9 Medical History Medical History (Updated 09/25/23 @ 06:34 by Kaycee Saul) Carpal tunnel syndrome of right wrist section wound complication Anxiety Lumbar spondylosis Night sweats Osteoarthritis Central pterygium of right eye Sleep disorder Hypomagnesemia History of alcohol abuse History of hallucinations H/O headache Memory impairment Chest wall pain Per pt. states it was anxiety Restless leg syndrome Lesion of face Vaginal atrophy Surgical History Surgical History (Updated 09/25/23 @ 06:34 by Kaycee Saul) H/O: hysterectomy Tobacco Smoking/Tobacco Use Status: Former Tobacco Use Alcohol Alcohol Intake: current Alcohol intake frequency: holidays/special occasions only Substance Use Substance use type: does not use Vital Signs and Lab Results Vital Signs Most Recent Vital Signs in EMR: Temp Pulse Resp BP Pulse Ox 36.6 C 88 16 121/86 100 09/25/23 06:26 09/25/23 06:26 09/25/23 06:26 09/25/23 06:26 09/25/23 06:26 Lab Results Blood Type / Crossmatch: No Data to Display Complete Blood Count: No Data to Display Complete Metabolic Panel: No Data to Display Liver Function Panel: No Data to Display Coagulation Panel: No Data to Display Cardiac Panel: No Data to Display Arterial Blood Gas: No Data to Display Venous Blood Gas: No Data to Display Pancreas Panel: No Data to Display Thyroid Panel: No Data to Display Infectious Disease: No Data to Display Blood Cultures: No Data to Display Toxicology Panel: No Data to Display Imaging and Studies Imaging and Studies Study information below may be from another EMR and interpreted by another provider. Please see original notes in EMR for more complete details. EKG Summary: 08/30: sinus. LAFB Anesthesia Assessment and Plan Anesthesia History Personal History: No History of Anesthesia Complications Family History: No Family History of Anesthesia Complications Exercise Tolerance Exercise Tolerance: Metabolic Equivalents>4 Cardiac & Pulmonary Exam Cardiac Exam: Normal S1/S2 Heart Sounds Pulmonary Exam: Clear Bilateral Breath Sounds Implantable Cardiac Device Does patient have a Pacemaker or an ICD?: No Airway Exam Known Difficult Airway: No Mallampati Class: 3 Mouth Opening: Narrow (< 3cm) Thyromental Distance: Greater than 3 cm Neck Range of Motion: Full ROM Neck Circumference: Normal Teeth Condition: Normal Dentition ASA Classification ASA Score: ASA 2 Emergency Case?: No NPO Status NPO Status: NPO Clears >2 hours, Solids >8 hours Anesthesia Plan Resuscitation Status: Full Code Anesthesia Technique: General Anesthesia Airway Planned: Natural Airway Monitors Used: Standard Monitors Preoperative Comments:: 58 yo female for colo. Sig PMhx: anxiety/depression, RLS, occ EtOH. former smoker.
--- NOTE | 2023-09-24 18:04 | PDOC.DSDIS_ITS ---
Date of service: 09/25/23 Time of Service: 07:53 Discharge Plan Disposition Patient Disposition: Home Condition: Good Discharge Details Reason For Visit: screening colonoscopy Attending Provider: Zachary Edmondson Primary Care Provider: Joselin Olmedo Home Meds and New Rx's Prescriptions: Continued magnesium 200 mg tablet 400 mg PO DAILY omega-3 fatty acids-fish oil [Fish Oil] 360-1,200 mg capsule 1 cap PO DAILY vitamin E mixed 100 unit tablet 45 mg PO DAILY Rx Instructions: take 2 capsules by mouth once daily cholecalciferol (vitamin D3) 10 mcg (400 unit) capsule 10 mcg PO DAILY Rx Instructions: take 2 capsules by mouth daily [facility] 250-2.5-0.5 mg capsule 2 cap PO DAILY Rx Instructions: take 2 capsules by mouth daily melatonin 10 mg capsule 10 mg PO HS PRN diphenhydramine HCl [Aler-Cap] 25 mg capsule 25 mg PO QHS PRN meclizine 25 mg tablet 25 mg PO DAILY PRN Rx Instructions: 1-2 tabs by mouth twice a day as needed for vertigo cyclosporine 0.05 % dropperette Patient Comments: pt's spouse reports both eyes Discharge Instructions Additional Instructions: Kira, you did great today. Your colonoscopy was totally normal. I did not see any signs of tumors, polyps, or anything worrisome. Because of the uncertain na ture of your mother's cancer, I would recommend a follow-up colonoscopy in 5 years. If you can find out for sure whether or not she ever had colon or rectal cancer, that would be helpful. Because that would extend your screening interval from 5 years to 10 years. If not, that is okay, we will repeat your colonoscopy in 5 years, and reassess at that point. If you have any questions at any time, please do not hesitate to call 1. If tolerated, consume a soft, low fiber diet for 1-2 days. 2[address] Do not drive, drink alcohol, operate machinery, make critical decisions, or do activities that require coordination or balance for 24 hours. 3. Because air was put into your colon during the procedure, expelling air from your rectum (passing gas or farting) is normal. 4. You may not have a bowel movement for 1-3 days because of the colonoscopy prep. This is normal. 5. Go directly to the emergency room if you notice any of the following: Develop chills (warm to touch), or if you have a thermometer and your temperature is above 101 Difficulty breathing or difficultly swallowing Persistent vomiting Severe abdominal pain, other than gas cramps Severe chest pain Black, tarry stools Any bleeding ? exceeding one tablespoon 6. Call your physician if the site where your intravenous was started becomes red, swollen, painful, and warm to touch. 7. Your physician has reviewed your pre-procedure medications. Please continue to take those medications as previously ordered. You will be given specific information/education regarding any changes to your medications before leaving. Activity:: Activity as Tolerated Diet:: As Tolerated Discharge Orders Discharge Orders: Discharge Order (Routine); Ordered 09/24/23 Ordered By: Zachary Edmondson DS: Diagnosis Discharge Diagnosis (1) Screen for colon cancer: Status: Acute Asessment and Plan: Negative screening colonoscopy. Based on her uncertain family history of colon cancer, I would recommend a follow-up colonoscopy in 5 years
--- NOTE | 2023-09-24 18:06 | COLE_ITS ---
Date of service: 09/25/23 Time of Service: 07:57 Colonoscopy Report Date of procedure: 09/25/23 Pre-op diagnosis general: screening colonocsopy Post-op diagnosis procedure note: other (Negative screening colonoscopy) Procedure: Colonoscopy Surgeon: Zachary Edmondson Anesthesia Type: General:No Airway Estimated blood loss (mL): 0 Pathology: none sent Complications: None Disposition: same day Indications: Kira is 58 years old and she needs a screening colonoscopy Prep: Miralax/Dulcolax Procedure Start Time: 07:26 Procedure End Time: 07:45 Retraction Time: 13 Findings: Negative screening colonoscopy Procedure Description: After the induction of monitored anesthetic care, and with the patient in left lateral decubitus position, I began by performing an external anorectal exam.? Perineum and skin were normal, as was the anal verge.? There are some perianal skin tags.? Next, I performed a digital rectal exam.? I did not appreciate any abnormal findings.? Next, I advanced a colonoscope into the rectal vault.? I performed retroflexion.? This was normal.? Using insufflation, I then advanced the colonoscope beyond the rectal folds and into the sigmoid colon before advancing towards the cecum.? The scope was noted to be in the cecum by identification of the ileocecal valve and appendiceal orifice.? I then began withdrawing the colonoscope using repeated irrigation as necessary for full evaluation of the colonic mucosa. ?Once the scope was withdrawn to the level of the rectum, great care was taken to examine portions of the rectal folds.? I did not see any signs of tumors, polyps, or any other pathology along the colo noscopy. Finally, the scope was withdrawn and the patient was brought to the same-day surgery recovery unit as the anesthetic wore off. ?The findings and instructions were shared with the patient prior to discharge. [place] Bowel Prep [place] Bowel Prep Right Colon: 3 Left Colon: 3 Transverse Colon: 3 Total Score: 9
[2023-09-25 06:26] VITALS: BP 121/86; PULSE 88; RESP 16; TEMP 36.6; O2SAT 100
[2023-09-25] MEDS: Lactated Ringers 1,000 ML 80 ML IV (06:50)
[2023-09-25 07:03] VITALS: BMI 22.6
[2023-09-25 07:51] VITALS: BP 116/78; PULSE 67; RESP 16; TEMP 36.4; O2SAT 100
--- NOTE | 2023-09-25 08:12 | W.ANESPOSTOP ---
Postoperative Evaluation Date, Time and Location Date Performed: 09/25/23 Time Performed: 08:00 Patient Location: Day Surgery Unit Vital Signs Most Recent Imported Vital Signs: Most Recent Vital Signs Temp Pulse Resp BP Pulse Ox 36.4 C L 67 16 116/78 100 09/25/23 07:51 09/25/23 07:51 09/25/23 07:51 09/25/23 07:51 09/25/23 07:51 Pain Score Most Recent Pain Score: Most Recent Pain Score Pain Level 0 09/25/23 07:51 Assessment Mental Status: Awake (Alert & Oriented to Patient Baseline) Airway and Respiratory Function: Patent airway with normal (patient baseline) respiratory exam Cardiovascular Function: Hemodynamically Stable Hydration Status: Adequately Hydrated Nausea & Vomiting: No Nausea or Vomiting Pain: Pt. Denies Any Pain Peripheral Nerve Block: Patient did not receive a nerve block
[2023-09-25 08:15] VITALS: BP 118/83; PULSE 61; RESP 16; TEMP 36.1; O2SAT 99
== END 2023-09-25 08:35 | disposition home or self-care (01) ==
LOC: SUR 06:11
PROVIDERS: PCP Nurse Practitioner Family; Visit Provider Surgery
PROC: 0DJD8ZZ Inspection of Lower Intestinal Tract, Via Natural or Artificial Opening Endoscopic (ICD-10-PCS; CPT 45378; principal; 2023-09-25 07:30)
DX: Z12.11 Encounter for screening for malignant neoplasm of colon (principal)
CPT/HCPCS: 45378; J2704

== ENCOUNTER → 2024-01-25 09:40 | Outpatient (CLI) | payer OTHER, MEDICAID, SELFPAY ==
--- NOTE | 2024-01-25 09:36 | DI.RAD_ITS ---
Exam(s) XR CHEST 2V PA LATERAL EXAM: XR CHEST 2V PA LATERAL CLINICAL HISTORY: PLEURODYNIA R07.81 LT SIDED RIB PAIN TECHNIQUE: 2D digital imaging was performed of the chest. Two images were obtained. PA and lateral views were obtained. COMPARISON: No exams were available for comparison FINDINGS: MEDIASTINUM: Normal. HEART: Normal. PULMONARY VASCULATURE: Normal. LUNGS: Clear. PLEURAL SPACE: No pleural effusion or pneumothorax. BONE:Within normal limits for the patient's age. The left ribs are grossly unremarkable. OTHER FINDINGS:Normal. IMPRESSION: No acute pulmonary findings. DATA REPOSITORY: RADIATION DOSE DELIVERED:
== END ==
PROVIDERS: PCP Nurse Practitioner Family; Visit Provider Nurse Practitioner Family
DX: R07.81 Pleurodynia (principal)
CPT/HCPCS: 71046

== ENCOUNTER 2024-02-13 16:10 | Outpatient (REF) | payer OTHER, MEDICAID, SELFPAY ==
[2024-02-13 17:58] LABS: Abs Immature Grans 0.01 10^3/uL (0.0-0.06); Absolute Basophil Count 0.09 10^3/uL (0.0-0.2); Absolute Eosinophil Count 0.29 10^3/uL (0.0-0.7); Absolute Lymphocyte Count 2.65 10^3/uL (1.2-3.4); Absolute Monocyte Count 0.33 10^3/uL (0.1-0.8); Absolute Neutrophil Count 3.61 10^3/uL (1.2-6.7); Basophils % 1.3 %; Eosinophils % 4.2 %; HCT 39.8 % (36.0-46.0); HGB 13.4 g/dL (11.2-15.7); Immature Grans % 0.1 %; MCHC 33.7 % (32.0-36.0); MCV 89 fL (80-95); MPV 10.1 fL (8.0-11.0); Monocytes % 4.7 %; Neutrophils % 51.7 %; Platelet Count 485 10^3/uL (130-400); RBC 4.47 10^6/uL (3.93-5.22); RDW 12.9 % (11.7-14.6); RDW-SD 42.5 fL; WBC 6.98 10^3/uL (4.4-10.8)
[2024-02-13 18:35] LABS: ALT 19 U/L (14-59); AST 14 U/L (15-37); Albumin 3.9 g/dL (3.4-5.0); Alkaline Phosphatase 52 U/L (46-116); Anion Gap 9.8 mmol/L (3-11); BUN 12 mg/dL (7-18); Bilirubin, Total 0.4 mg/dL (0.2-1.0); CO2 30.2 mmol/L (21.0-32.0); CREATININE 0.8 mg/dL (0.55-1.02); Calcium 9.6 mg/dL (8.5-10.1); Chloride 105 mmol/L (98-107); Estimated GFR 85.35 (mL/min/1.73m2); Folate 14.8 ng/mL (8.6-20.0); Glucose 88 mg/dL (74-106); Magnesium 2.1 mg/dL (1.8-2.4); Potassium 4.5 mmol/L (3.5-5.1); Sodium 145 mmol/L (136-145); TSH (W/Ref FT4) 0.76 uIU/mL (0.36-3.74); Total Protein 7.2 g/dL (6.4-8.2); Vitamin B12 856 pg/mL (193-986)
== END 2024-02-13 16:11 | disposition home or self-care (01) ==
LOC: NCHCN 16:10
PROVIDERS: PCP Nurse Practitioner Family; Visit Provider Nurse Practitioner Family
DX: F41.8 Other specified anxiety disorders (principal)
CPT/HCPCS: 80053; 82306; 82607; 82746; 83735; 84443; 85025

== ENCOUNTER 2024-09-11 13:28 | Outpatient (REF) | payer OTHER, SELFPAY ==
[2024-09-11 20:23] LABS: ALT 20 U/L (14-59); AST 18 U/L (15-37); Albumin 3.7 g/dL (3.4-5.0); Alkaline Phosphatase 55 U/L (46-116); Anion Gap 7.1 mmol/L (3-11); BUN 14 mg/dL (7-18); Bilirubin, Total 0.19 mg/dL (0.2-1.0); CO2 29.9 mmol/L (21.0-32.0); CREATININE 0.8 mg/dL (0.55-1.02); Calcium 9.8 mg/dL (8.5-10.1); Calculated LDL 144 mg/dL (<100); Chloride 106 mmol/L (98-107); Cholesterol 253 mg/dL (<200); Estimated GFR 84.82 (mL/min/1.73m2); Glucose 94 mg/dL (74-106); HDL Cholesterol 90 mg/dL (40-60); Potassium 4.3 mmol/L (3.5-5.1); Sodium 143 mmol/L (136-145); Triglyceride 96 mg/dL (<150)
[2024-09-11 20:42] LABS: Abs Immature Grans 0.03 10^3/uL (0.0-0.06); Absolute Basophil Count 0.12 10^3/uL (0.0-0.2); Absolute Eosinophil Count 0.36 10^3/uL (0.0-0.7); Absolute Monocyte Count 0.47 10^3/uL (0.1-0.8); Basophils % 1.1 %; Eosinophils % 3.2 %; HCT 42.3 % (36.0-46.0); Immature Grans % 0.3 %; Lymphocytes % 34.6 %; MCH 29.4 pg (27.0-33.0); MCHC 33.1 % (32.0-36.0); MCV 89 fL (80-95); MPV 10.2 fL (8.0-11.0); Monocytes % 4.2 %; Neutrophils % 56.6 %; Platelet Count 452 10^3/uL (130-400); RBC 4.77 10^6/uL (3.93-5.22); RDW 13.2 % (11.7-14.6); RDW-SD 43.4 fL; WBC 11.26 10^3/uL (4.4-10.8)
[2024-09-11 20:43] LABS: Absolute Neutrophil Count 6.37 10^3/uL (1.2-6.7)
== END 2024-09-11 13:29 | disposition home or self-care (01) ==
LOC: NCHCN 13:28
PROVIDERS: Visit Provider Nurse Practitioner Family
DX: Z51.81 Encounter for therapeutic drug level monitoring (principal); E78.5 Hyperlipidemia, unspecified
CPT/HCPCS: 80053; 80061; 85025